=== PATIENT | female | born 1985 | race Caucasian/White ===

== ENCOUNTER → 2022-09-05 15:36 | Outpatient (CLI) | payer SELFPAY ==
[2022-09-05 17:36] LABS: Urine N gonorrhoeae NOT DETECTED
[2022-09-05 17:42] LABS: Urine Chlamydia NOT DETECTED
== END ==
PROVIDERS: Visit Provider Nurse Practitioner Family
DX: N89.8 Other specified noninflammatory disorders of vagina (principal); R30.0 Dysuria; Z11.3 Encounter for screening for infections with a predominantly sexual mode of transmission
CPT/HCPCS: 87077; 87086; 87186; 87210; 87491; 87591